=== PATIENT | female | born 1930 | race Asian ===

== ENCOUNTER 2016-06-01 11:47 | Emergency (ER) | payer MEDICARE, OTHER ==
[~2016-06-01] VITALS: Ht 157.5 cm; Wt 54.4 kg
[2016-06-01] MEDS ORDERED: DOCUSATE SODIU100 MG ORAL (11:58)
[2016-06-01] MEDS ORDERED: DONEPEZIL HCL10 M2 ORAL (11:58)
[2016-06-01] MEDS ORDERED: ZOFRAN4 M3 ORAL (11:58)
[2016-06-01] MEDS ORDERED: ATORVASTATIN CA20 MG ORAL (11:58)
[2016-06-01] MEDS ORDERED: NAMENDA10 MG ORAL (11:58)
[2016-06-01 12:41] LABS: BASOPHILS % (AUTO) 0.5 % (0.0-2.0); MEAN CORPUSCULAR HEMOGLOBIN 30.4 PG (27.0-31.0); MEAN CORPUSCULAR HGB CONC 31.9 G/DL (32.0-36.0); MEAN CORPUSCULAR VOLUME 95 FL (80-99); MEAN PLATELET VOLUME 6.1 FL (6.5-10.1); MONOCYTES % (AUTO) 7.6 % (1.0-10.0); NEUTROPHILS % (AUTO) 78.9 % (45.0-75.0); PLATELET COUNT 234 K/UL (150-450); RED BLOOD COUNT 3.22 M/UL (4.20-5.40); RED CELL DISTRIBUTION WIDTH 12.8 % (11.6-14.8); WHITE BLOOD COUNT 10.3 K/UL (4.8-10.8)
[2016-06-01 12:51] LABS: ALANINE AMINOTRANSFERASE 6 U/L (3-33); ALBUMIN/GLOBULIN RATIO 0.8 (1.0-2.7); ANION GAP 18 (5-15); ASPARTATE AMINO TRANSFERASE 17 U/L (5-40); CALCIUM 9.3 mg/dL (8.6-10.2); CARBON DIOXIDE 23 mEQ/L (20-30); CHLORIDE 99 mEQ/L (98-107); CREATININE 1.9 mg/dL (0.5-0.9); HEMOLYSIS 56; POTASSIUM 4.5 mEQ/L (3.4-4.9); SODIUM 140 mEQ/L (135-145); TOTAL PROTEIN 7.8 g/dL (6.6-8.7); TROPONIN I < 0.30 ng/mL (<=0.30)
[2016-06-01 13:02] LABS: CKMB < 1.5 ng/mL (< 3.8)
[2016-06-01 13:05] VITALS: BP 117/71
--- NOTE | 2016-06-01 14:00 | Diagnostic Imaging Report ---
Indication: Pain Findings: 2 views of the left forearm were obtained. There is acute transcondylar fracture of the distal humerus. The bones are osteopenic. The mediastinal and appear intact. Impression: Acute fracture of the distal humerus
--- NOTE | 2016-06-01 14:12 | Emergency Room Report ---
History of Present Illness General Chief Complaint: Multiple Trauma/Fall Source: Patient, Family Member Present Illness HPI 86 YO F with known dementia brought from assist living facility by latrice after daughter was old by facility that patient "Fell in elevator 2-3 days ago. " Patient c/o pain to right wrist and left elbow but cannot remember what happened. She feels well otherwise. Currently denies chest pain, SOB, palpitations, headache, abd pain. Patient denies if she experienced symptoms prior to fall but she is demented and also doesnt remembr the fall. Daughter states patient has known kidney disease. Denies other meds or medications. Allergies: Coded Allergies: No Known Allergies (Unverified , 10/26/15) Patient History Past Medical History: renal disease Past Surgical History: none Pertinent Family History: none Social History: Denies: alcohol use, drug use, smoking Now: No Immunizations: UTD Reviewed Nursing Documentation: PMH: Agreed, PSxH: Agreed Nursing Documentation-PMH Past Medical History: No History, Except For History Of Psychiatric Problem: Yes - DEMENTIA Hx Cerebrovascular Accident: Yes Review of Systems All Other Systems: negative except mentioned in HPI Physical Exam Vital Signs Date Time Temp Pulse Resp B/P Pulse Ox O2 Delivery O2 Flow Rate FiO2 06/01/16 11:54 98.2 94 20 121/81 100 Room Air Sp02 EP Interpretation: reviewed, normal General Appearance: normal inspection, well appearing, no apparent distress, alert, GCS 15, non-toxic Head: normocephalic, atraumatic Eyes: bilateral eye EOMI, bilateral eye PERRL ENT: normal ENT inspection, hearing grossly normal, normal voice Neck: normal inspection, full range of motion, supple, no bony tend Respiratory: normal inspection, lungs clear, normal breath sounds, no respiratory distress, no retraction, no wheezing Cardiovascular #1: regular rate, rhythm, no edema Musculoskeletal: normal inspection, back normal, gait/station normal, normal range of motion, no calf tenderness, pelvis stable, Howard's Sign negative, other - Right wrist: obvious swelling at distal radius, no obvious deformty. Mild ttp. No ttp to right forearm, fingers, shoudler, humerus. Left arm: There is pain localized to left elbow and forearm on bending of left elbow. No obvious trauma to left upper etremit Neurologic: normal inspection, alert, oriented x3, responsive, side framer III-XII nml as tested, motor strength/tone normal, speech normal Psychiatric: normal inspection, judgement/insight normal, mood/affect normal Skin: normal inspection, normal color, no rash Lymphatic: normal inspection Medical Decision Making Diagnostic Impression: Primary Impression: Wrist fracture Qualified Codes: S62.101A - Fracture of unspecified carpal bone, right wrist, initial encounter for closed fracture Additional Impressions: Left supracondylar humerus fracture Qualified Codes: S42.412A - Displaced simple supracondylar fracture without intercondylar fracture of left humerus, initial encounter for closed fracture Multiple injuries due to trauma Fall Qualified Codes: W19.XXXA - Unspecified fall, initial encounter ER Course 86 YO F with ?accidental fall vs syncope and fall. VSS. Afebrile. Xray of right wrist negative for fracture but given swelling/pain to distal radius, we placed thumb spica splint Xray of left forearm + for left distal humerus fx, non-displaced. Splint also placed over elbow Labs significant only for elevated serumCr. Gave copy of labs to daughter, advised PMD followup/recheck CMP at next visit ECG is NSR, no ischemia. Troponin 0. Low suspicion for syncope as cause of fall, or cardiac cause of syncope/fall given results, well appearance DC back to Assisted Living, daugter to transport Last Vital Signs Date Time Temp Pulse Resp B/P Pulse Ox O2 Delivery O2 Flow Rate FiO2 06/01/16 13:05 98.2 74 20 117/71 100 Room Air Status: improved Disposition: ASSISTED LIVING Condition: Improved Patient Instructions: Wrist Fracture, [id number] Additional Instructions: - Keep splint on and clean/dry until seen by Orthopedist/Hand doctor - Please follow up with your primary doctor to recheck your kidney function - Only take tylenol as needed for pain - do NOT take IBUPROFEN as it may worsen your kidney function CALEB CASILLAS M.D. Jun 01, 2016 14:12
[2016-06-01 14:35] VITALS: BP 126/69
[2016-06-01 14:38] VITALS: BP 126/69
--- NOTE | 2016-06-04 12:49 | Cardiology Report ---
APPROVED REPORT EKG Measurement Heart [id number] Normal sinus rhythm Normal ECG
--- NOTE | 2016-06-05 14:00 | Diagnostic Imaging Report ---
Indication: Pain Findings: 3 views of the right wrist were obtained. Bones are osteopenic. There is no fracture or malalignment identified. Degenerative changes are noted at the base of the thumb. Impression: No acute fracture or malalignment identified.
--- NOTE | 2016-06-05 14:00 | Diagnostic Imaging Report ---
Indication: Chest Pain Comparison: None A single view chest radiograph was obtained. Findings: No definite infiltrate or pulmonary vascular congestion identified. The heart is enlarged. The aorta is mildly enlarged consistent with atherosclerotic vascular disease. The bones are osteopenic. Impression: No acute disease
== END 2016-06-01 14:39 | disposition home or self-care (01) ==
LOC: EMR 12:40 → CANBEDREQ 13:56 → EMR 14:39
DX: S62.101A Fracture of unspecified carpal bone, right wrist, initial encounter for closed fracture (principal); S42.412A Displaced simple supracondylar fracture without intercondylar fracture of left humerus, initial encounter for closed fracture; W19.XXXA Unspecified fall, initial encounter; Y92.9 Unspecified place or not applicable; Z86.73 Personal history of transient ischemic attack (TIA), and cerebral infarction without residual deficits; F03.90 Unspecified dementia, unspecified severity, without behavioral disturbance, psychotic disturbance, mood disturbance, and anxiety
CPT/HCPCS: 36415; 71010; 80053; 82550; 82553; 84484; 85025; 93005; 99283